=== PATIENT | male | born 1950 | race Caucasian/White ===

== ENCOUNTER 2019-03-29 10:27 | Outpatient (CLI) | payer MEDICARE, OTHER ==
[~2019-03-29] VITALS: Ht 177.8 cm; Wt 84.1 kg
--- NOTE | ~2019-03-29 | HEMODYNAMI ---
PATIENT:DOMINICK GOMES MEDICAL RECORD: [id number] : 54 LOCATION:D.CAT ADMISSION DATE: 03/29/19 Generatedon:03/29/201914:13 Patient name: DOMINICK GOMES Patient #: [id number] SSN: D OB: 1950 Date of study: 03/29/2019 Page: Of Hemodynamic Procedure Report Patient Data Patient Demographics Procedure consent was obtained First Name: DOMINICK Gender: Male Last Name: MIREYA : 1950 Middle Initial: JEANNE Age: 68 year(s) Patient #: [id number] Race: Unknown Additional ID: [id number] Contact details Address: [address] [place] State: [place] City: [place] Zip code: [address] Admission Admission Data Admission Date: 03/29/2019 Admission Time: 10:27 Procedure Procedure Types Cath Procedure Diagnostic Procedure PPM/ICD Permanent Pacer Generator Exg. Procedure Description Procedure Date Procedure Date: 03/29/2019 Procedure Start Time: 13:52 Procedure End Time: 14:12 Procedure Staff Name Function Arnoldo Villasenor MD Performing Physician Koko Beal MD Assisting physician Carlos Downey RT Monitor Nasreen Weaver RT Scrub [place] Strauss RN Nurse Procedure Data Cath Procedure Fluoroscopy Diagnostic fluoroscopy Total fluoroscopy Time: 0 time: 0 min min Diagnostic fluoroscopy Total fluoroscopy dose: 0 dose: 0 mGy mGy Contrast Material Contrast Material Type Amount (ml) Isovue 370 0 Estimated blood loss: 5 ml Procedure Complications No complications Procedure Medications Medication Administration Route Dosage 0.9% NaCl I.V. 100 ml/hr Oxygen etCO2 Nasal cannula 2 l/min Lidocaine 1% with added to field 20 Epi Versed I.V. 2 mg Fentanyl I.V. 100 mcg Ancef (1Gm/50ml NS) I.V.P.B 1 g Ancef Irrigation 1 g (1gm/500ml NS) Fentanyl I.V. 50 mcg Hemodynamics Rest Heart Rate: 69 (bpm) Snapshots Pre Cath Intra NCS Post Cath Vital Signs Time Heart Resp SPO2 etCO2 NIBP (mmHg) Rhythm Pain Sedation Rate (ipm) (%) (mmHg) Status Level (bpm) 13:48:14 72 12 97 0 146/84(129) NSR 0 (11) 10(A) , No pain 13:52:30 104 14 95 0 162/84(121) NSR 0 (11) 10(A) , No pain 13:57:42 60 20 98 0 156/68(130) NSR 0 (11) 10(A) , No pain 14:02:06 62 15 96 0 164/67(123) NSR 0 (11) 10(A) , No pain 14:06:26 69 14 96 0 161/68(117) NSR 0 (11) 10(A) , No pain 14:10:48 67 14 96 0 153/62(118) NSR 0 (11) 10(A) , No pain Medications Time Medication Route Dose Verified Delivered Reason Notes Ef fectiveness by by 13:49:13 0.9% NaCl I.V. 100 [place] Per ml/hr Rica Strauss physician RN RN 13:49:22 Oxygen etCO2 Nasal 2 [place] for low 02 cannula l/min Rica Strauss satchiquita RN RN 13:49:41 Lidocaine added to 20 ml [place] for local 1% with Epi field x 2 Lorigan Lorigan anesthetic RN RN 13:51:23 Versed I.V. 2 mg [place] for Lorigan Lorigan sedation RN RN 13:51:32 Fentanyl I.V. 100 [place] for mcg Lorigan Lorigan sedation RN RN 13:51:53 Ancef I.V.P.B 1 g [place] Per (1Gm/50ml [place] Strauss physician NS) RN RN 13:52:43 Ancef Topical(added 1 g [place] used for Irrigation to field) Lorigan Lorigan procedure (1gm/500ml RN RN NS) 13:54:15 Fentanyl I.V. 50 [place] for mcg Lorigan Lorigan sedation RN ballistician Log Time Note 13:25:32 Chico Strauss RN sent for patient. Start room use. 13:32:24 Signed procedure consent form obtained from patient. 13:32:25 Diagnostic Cath status Elective 13:32:26 Time tracking: Regular hours (M-F 7:00 - 5:00) 13:32:30 Plan of Care:Hemodynamics will remain stable., Cardiac rhythm will remain stable., Comfort level will be maintained., Respiratory function will remain adequate., Patient/ family verbilizes understanding of procedure., Procedure tolerated without complication., Recovers from procedure without complications.. 13:34:42 Patient received from Pre/Post Procedure Room to CCL 2 Alert and oriented. Tansferred to table in Supine position. 13:34:43 Warm blankets applied, and cabrera hugger turned on for patient comfort. 13:34:44 Correct patient and procedure confirmed by team. 13:34:44 ECG and BP/O2 sat monitors applied to patient. 13:34:55 H&P Date Dictated: 03/16/2019 Within 30 days and on chart., H&P Addendum completed by physician on day of procedure. (MUST COMPLETE FOR ALL OUTPATIENTS). 13:40:01 Grounding pad site free from injury. 13:47:02 Baseline sample Acquired. 13:47:02 Vital chart was started 13:48:51 Rhythm: paced 13:48:53 Full Disclosure recording started 13:48:54 Pre-procedure instructions explained to patient. 13:48:55 Pre-op teaching completed and patient verbalized understanding. 13:48:56 Family in patients room. 13:48:57 Patient NPO since Midnight. 13:48:59 Is the patient allergic to Iodine/contrast media? No. 13:49:00 Is patient on blood thinner?No 13:49:03 Patient diabetic? No. 13:49:08 Previous problem with sedation/anesthesia? No ? 13:49:09 Snore? Yes 13:49:10 Sleep apnea? No 13:49:11 Deviated septum? No 13:49:11 Opens mouth fully? Yes 13:49:12 Sticks out tongue? Yes 13:49:13 0.9% NaCl 100 ml/hr I.V. was administered by Chico Strauss RN; Per physician; 13:49:14 Airway obstruction? No ? 13:49:17 Dentures? No ? 13:49:22 Oxygen 2 l/min etCO2 Nasal cannula was administered by Chico Strauss RN; for low 02 sats; 13:49:32 Patient pain scale 0/10 ?. 13:49:40 IV patent on arrival in right forearm with 0.9% NaCl at O. 13:49:41 Lidocaine 1% with Epi 20 ml x 2 added to field was administered by Chico Strauss RN; for local anesthetic; 13:49:42 Lab results completed and on chart. 13:49:52 Left chest area was prepped with dura-prep and draped in sterile fashion 13:50:05 Alarms reviewed by R. N. 13:50:06 Sharps counted by scrub and verified by R.N. 13:50:10 --------ALL STOP TIME OUT------ 13:50:11 Final Timeout: patient, procedure, and site verified with staff and physician. All members of the team are in agreement. 13:50:14 Left chest site verified by team. 13:50:23 Fire Safety Assessment: A--An alcohol-based skin anteseptic being used preoperatively., B--The operative or invasive procedure is being performed above the xiphoid process or in the oropharynx., E--There are other possible contributors. 13:50:33 Physical assessment completed. ASA score P 2 - A patient with mild systemic disease as per Koko Beal MD. 13:50:37 Sedation plan: IV Moderate Sedation Medication:Versed, Fentanyl 13:50:47 Procedure started. 13:50:55 [employer] accounts payable representative Jose Mcdonnell present for procedure. 13:51:23 Versed 2 mg I.V. was administered by Chico Strauss RN; for sedation; 13:51:32 Fentanyl 100 mcg I.V. was administered by Chico Strauss RN; for sedation; 13:51:53 Ancef (1Gm/50ml NS) 1 g I.V.P.B was administered by Chico Strauss RN; Per physician; 13:51:55 Pre sharps counted by scrub and verified by RN: Sutures: 19; Sponges: 5; Stick needles: 0; Skin needles: 2; Blade: 1; Cautery: 1 13:51:59 Grounding pad site Left thigh. 13:52:09 Lidocaine 1% w/epi and Bupivacaine 0.5% was administered to left subclavicular area by Koko Beal MD . 13:52:43 Ancef Irrigation (1gm/500ml NS) 1 g Topical(added to field) was administered by Chico Strauss RN; used for procedure; 13:52:57 Use device set JENNY PPM 13:53:02 Cautery Pushbutton Pencil opened to sterile field. 13:53:02 Mepilex Dressing (088306) opened to sterile field. 13:53:04 Cautery Tip Sustainable Design Coordinator opened to sterile field. 13:53:07 2-0 Ticron Multipack ([id number]) opened to sterile field. 13:53:16 2-0 Ticron Multipack ([id number]) opened to sterile field. 13:53:20 3-0 Vicryl Single Pack [id number] opened to sterile field. 13:53:32 3-0 Vicryl Multipack [id number] opened to sterile field. 13:53:39 Incision made to left subclavicular area. 13:53:42 Generator pocket made/opened. 13:54:05 [employer] MRI PPM Dual Generator [id number] opened to sterile field. 13:54:15 Fentanyl 50 mcg I.V. was administered by Chico Strauss RN; for sedation; 13:54:29 PPM Dual was removed.. 13:55:11 PPM Dual was attached to lead(s) and inserted into pocket. 13:55:20 Device pocket was irrigated with Ancef. 13:55:26 Generator was sutured in place with 2-0 ticron. 13:57:50 Subcutaneous closure was completed with 3-0 vicryl. 14:01:26 Parameters-- Generator: Mode: DDDR. Lower Rate: 60bpm. Upper Rate: 120bpm. 14:02:12 Parameters--Ventricular P/R Wave: 16mV. Current: 0.1mA; Threshold: 1.3V; Impedence: 476OHMS. 14:02:26 Parameters--Atrial P/R Wave: 2.1mV. Current: 0.1mA; Threshold: 0.8V; Impedence: 236OHMS. 14:02:34 Skin closure was completed with 3-0 vicryl. 14:04:46 Lt Chest incision was dressed with Mepilex dressing. 14:05:22 Procedure ended.(Physican Out) 14:05:42 Fluoroscopy time 00.00 minutes. 14:05:44 Fluoroscopy dose: 0 mGy 14:05:44 Flurop Dose total: 0 14:05:47 Contrast amount:Isovue 370 0ml. 14:05:48 Sharps counted by scrub and verified by R.N. 14:06:04 Post sharps counted by scrub and verified by RN: Sutures: 18; Sponges: 5; Stick needles: 0; Skin needles: 2; Blade: 1; Cautery: 1 14:06:09 Insertion/operative site no bleeding no hematoma. 14:06:15 Post-op/insertion site Left Chest area dressed using a Mepilex dressing. 14:06:21 Post-procedure physical assessment completed. ASA score P 2 - A patient with mild systemic disease as per Koko Beal MD. 14:06:24 Post procedure rhythm: paced 14:06:27 Estimated blood loss: 5 ml 14:06:29 Post procedure instruction explained to patient.Patient verbalizes understanding. 14:06:29 Patient needs reinforcement of post procedure teaching. 14:06:34 Procedure and supply charges have been captured, reviewed, submitted and are correct. 14:06:36 Procedure Complication : No complications 14:12:29 Vital chart was stopped 14:12:30 See physician's report for complete and final results. 14:12:34 Report given to Pre/Post Procedure Room. 14:12:37 Patient transfered to Pre/Post Procedure Room with Stretcher. 14:12:43 Procedure ended. 14:12:43 Full Disclosure recording stopped 14:12:49 End room use (Document Last) Device Usage Item Name Manufacture Quantity Catalog Hospital Part Current Minimal Lot# / Number Charge Number Stock Stock Serial# Code Cautery Microtek 1 [id number] [id number] 5 Pushbutton [employer] Pencil Mepilex Cardinal 1 [id number] 5 Dressing Health (236901) Cautery Tip Microtek 1 [id number] 173459 974050 [id number] 5 Sustainable Design Coordinator [employer] 2-0 Ticron Ethicon 2 [id number] 922921 30167 [id number] 5 Multipack ([id number]) 3-0 Vicryl Ethicon 1 [id number] 009439 366280 710612 5 Single Pack [id number] 3-0 Vicryl Ethicon 1 [id number] 652119 211956 347224 5 Multipack [id number] Medtronic Medtronic 1 [id number] 214414 817589 [id number] 5 [id number] Advisa MRI EXP PPM Dual 10-04-19 Generator [id number] Signature Audit [place] Stage Time Signature Unsigned Intra-Procedure 03/29/2019 Carlos Downey 2:13:21 PM RT(R) Signatures Monitor : Carlos Downey RT Signature : Date : Time : [place] [id number]
[2019-03-29] MEDS ORDERED: CYMBALTA60 MG PO (10:47)
[2019-03-29] MEDS ORDERED: BAYER CHEWABLE81 MG PO (10:48)
[2019-03-29] MEDS ORDERED: NORVASC10 MG PO (10:48)
[2019-03-29] MEDS ORDERED: ATIVAN1 MG PO (10:48)
[2019-03-29] MEDS ORDERED: KRILL OIL 1,001 EAC1 PO (10:49)
[2019-03-29] MEDS ORDERED: LISINOPRIL40 MG PO (10:49)
[2019-03-29] MEDS ORDERED: MULTI-DAY VITAM1 TAB PO (10:49)
[2019-03-29 11:07] VITALS: BP 137/72; Ht 177.8 cm; Wt 84.1 kg
[2019-03-29 11:13] LABS: HEMATOCRIT 38.4 % (42.0-54.0); HEMOGLOBIN 13.2 g/dL (13.5-17.5); MCHC 34.4 g/dL (31.0-37.0); MCV 90.1 fL (80.0-100.0); MEAN PLATELET VOLUME 11.5 fL (7.4-10.4); RBC 4.26 10x6/uL (4.20-6.10); RDW 12.8 % (11.5-14.5); WBC 4.7 10x3/uL (4.8-10.8)
[2019-03-29 11:21] LABS: INR 1.04 (0.85-1.17); PROTIME 13.1 SECONDS (11.6-15.0)
[2019-03-29 11:26] LABS: CALC OSMOLALITY 285 mosm/kg (275-300); CALCIUM 8.7 mg/dL (8.5-10.1); CARBON DIOXIDE 31.3 mmol/L (21.0-32.0); CHLORIDE - SERUM 106 mmol/L (98-107); CREATININE - SERUM 0.9 mg/dL (0.6-1.3); GLUCOSE 96 mg/dL (74-106); POTASSIUM - SERUM 4.1 mmol/L (3.5-5.1); SODIUM 142 mmol/L (136-145); UREA NITROGEN 20 mg/dL (7-18); eGFR NON AFRICAN AMERICAN 90 mL/min (90-120)
--- NOTE | 2019-03-29 14:30 | NUR ---
RESTING QUIETLY WITH EYES CLOSED. 2L NC WITH NO RESP DISTRESS. LEFT CHEST MEPILEX DRSG CDI, NO BLEEDING NOTED. VSS. FAMILY AT BEDSIDE, CALL LIGHT WITHIN REACH.
--- NOTE | 2019-03-29 15:00 | NUR ---
LEFT PIV D/C'D WITH CATHETER INTACT, BAND AID TO SITE. UP TO BEDSIDE TO GET DRESSED. AMBULATED TO RESTROOM.
--- NOTE | 2019-03-29 15:15 | NUR ---
TAKEN OUT VIA WHEELCHAIR BY CATH COVERAGE ANALYST. LEFT FACILITY WITH FAMILY AND ALL PERSONAL BELONGINGS.
--- NOTE | 2019-04-01 16:07 | OP ---
PATIENT NAME: DOMINICK GOMES MEDICAL RECORD: [id number] :54 LOCATION:D.CAT ADMISSION DATE: SURGEON: DARRIUS KNOX MD DATE OF OPERATION: 03/29/2019 PREOPERATIVE DIAGNOSIS: Pacemaker generator at end of life. POSTOPERATIVE DIAGNOSIS: Pacemaker generator at end of life. PROCEDURE: Pacemaker generator change. SURGEON: Darrius Knox MD ACCIDENT INVESTIGATOR: None. BLOOD LOSS: Minimal. ANESTHESIA: Local. COMPLICATIONS: None. This is a dual lead pacemaker. The risks, possible complications, and alternatives to the procedure were explained to the patient. He elects to proceed. OPERATIVE COURSE: The patient was conveyed to the cardiac catheterization laboratory on 03/29/2019. IV sedation was induced by the anesthesia staff. The left upper chest was sterilely prepped and draped. A local anesthetic was used to infiltrate the skin and subcutaneous tissues overlying the pacemaker generator. I incised along the patient's scar. I dissected down with the Bovie to the pacemaker generator. The pacemaker generator was then removed from its pocket. I confirmed the lead serial numbers with the pacemaker goodwill representative. First, we removed the ventricular lead and then placed in the ventricular lead of the new pacemaker generator and tightened down with the wrench. I tried to dislodge the lead and was unable to do so. I then unscrewed the atrial lead. I placed it in the atrial lead to the new pacemaker generator and tightened down the screw. I tried to dislodge the atrial lead and was unable to do so. I then placed the pacemaker generator back in the port pocket. I sutured it to the underlying pseudo-bursa with a single 2-0 TiCron. I then irrigated in the pocket with normal saline. The subdermis was approximated with interrupted 3-0 Vicryls. The skin was approximated with a running intracuticular 3-0 Vicryl. A sterile dressing was applied. The patient was then conveyed to the post-cardiac catheterization unit. He will be following up with Dr. Geller. There is no reason for the patient to follow up with me unless he develops a complication related to this operative procedure. TRANSINT:[id number] Voice Confirmation ID: [id number] DOCUMENT ID: [id number] OPERATIVE REPORT [id number] MIREYADOMINICK DAVE DARRIUS KNOX MD at 1607 CC: JUAN R GELLER [phone] DICTATION DATE: 03/29/19 1516 POLICY CHANGE CLERK: 03/29/19 1535 DEP CLI 03/29/19 [place] [id number] [place] [address]
== END 2019-03-29 15:15 | disposition home or self-care (01) ==
LOC: D.CATH 10:27
PROVIDERS: ATTEND Internal Medicine Interventional Cardiology
DX: Z45.010 Encounter for checking and testing of cardiac pacemaker pulse generator [battery] (principal); Z01.812 Encounter for preprocedural laboratory examination

== ENCOUNTER → 2019-08-25 08:50 | Outpatient (CLI) | payer MEDICARE, OTHER ==
[2019-03-29 11:07] VITALS: BMI 26.6
--- NOTE | ~2019-08-25 | EC ---
PATIENT:DOMINICK GOMES DATE OF SERVICE: 08/25/19 SEX: M MEDICAL RECORD: [id number] DATE OF : 54 [facility] AGE OF PATIENT: 69 ADMISSION DATE: 08/25/19 REFERRING PHYSICIAN: INTERPRETING PHYSICIAN: JUAN R GELLER MD ECHOCARDIOGRAM REPORT ECHO CHARGES 4 ECHO COMPLETE Date: 08/25/19 CLINICAL DIAGNOSIS: MITRAL VAVLE PROLAPSE, HX PACEMAKER/HTN ECHOCARDIOGRAPHIC MEASUREMENTS (adult normal given) AC root (d.<3.7cm) 3.4 cm LV Septum d (<1.2 cm> 1.8 cm Valve Excursion 1.8 cm LV Septum (systole) 1.9 cm Left Atria (s.<4.0cm> 13.6 cm LVPW d(<1.2cm) 1.9 cm RV (d.<2.3cm) 4.0 cm LVPW (sytole) 2.0 cm LV diastole(<5.6CM) 4.0 cm MV E-F(>70mm/sec) cm LV systole 2.5 cm LVOT Diameter 1.9 cm MV exc.(>10mm) 2.2 cm Est.ejection fraction (50-75%) % DOPPLER: LVIT cm/sec A 74.0 cm/sec E 63.0 cm/sec LA cm/sec RVSP 29 mmHg LVOT 108 cm/sec AOP1/2T m/s Asc. Ao 140 cm/sec RVOT 78 cm/sec RA cm/sec PA 128 cm/sec AV Gradient Peak 7.80 mmHg AV Mean 3.92 mmHg AV Area 2.3 cm MV Gradient Peak 3.68 mmHg MV Mean 1.09 mmHg MV Area cm COMMENTS: Brush Maker Machine: 2 JOSE DAVID HUERTA Seed Laboratory Assistant: 1 Dr. Geller TAPE# PACS Pericardial Effusion N DATE OF SERVICE: FINDINGS: 1. Left ventricular chamber size is within normal limits. Left ventricular systolic function is normal at 60% to 65%. 2. Left atrium is within normal limits at 3.6 cm. Right atrium and right ventricular chamber sizes are mildly dilated. 3. Valvular structures have normal structure and motion. 4. Doppler interrogation reveals trace mitral regurgitation, mild tricuspid regurgitation, no other valvular insufficiency or stenosis. Pulmonary systolic ECHOCARDIOGRAM REPORT [id number] DOMINICK GOMES pressure is estimated at 29 mmHg. 5. No evidence of pericardial effusion or left ventricular thrombus. TRANSINT:[id number] Voice Confirmation ID: [id number] DOCUMENT ID: [id number] JUAN R GELLER MD CC: [id number] DICTATION DATE: 08/26/19 1041 SEWER DIGGER: 08/26/19 1103 DEP CLI 08/25/19 [place] [id number] [place] [address]
[~2019-08-25 08:50] MED LIST: ATIVAN1 MG PO; BAYER CHEWABLE81 MG PO; CYMBALTA60 MG PO; KRILL OIL 1,001 EAC1 PO; LISINOPRIL40 MG PO; MULTI-DAY VITAM1 TAB PO; NORVASC10 MG PO
== END | disposition home or self-care (01) ==
LOC: D.HCCECHO 08:50
PROVIDERS: ATTEND Internal Medicine Interventional Cardiology
DX: I34.9 Nonrheumatic mitral valve disorder, unspecified (principal)